=== PATIENT | female | born 1955 | race Caucasian/White ===

== ENCOUNTER 2021-05-07 14:01 | Outpatient (CLI) | payer OTHER, SELFPAY ==
--- NOTE | ~2021-05-07 | XR_ITS ---
XR chest 2V DATE: 05/07/2021 14:20 INDICATION: Chest wall pain TECHNIQUE: 2 views COMPARISON: None FINDINGS: Heart size is within normal range. Is aortic tortuosity. No hilar or mediastinal enlargemen t. Discoid atelectasis or scarring is suggested at the lingula. No pulmonary infiltrate or consolidation , pleural effusion or pulmonary vascular congestion or pneumothorax. There is diffuse osteopenia. Bilateral glenohumeral osteoarthritis. IMPRESSION: No active cardiopulmonary disease Aortic tortuosity Diffuse osteopenia Reviewed, dictated and finalized at location A.
== END 2021-05-07 14:02 ==
PROVIDERS: PCP Nurse Practitioner Family; Visit Provider Nurse Practitioner Family
DX: R07.89 Other chest pain (principal); M85.88 Other specified disorders of bone density and structure, other site
CPT/HCPCS: 71046